=== PATIENT | female | born 1935 | race Caucasian/White ===

== ENCOUNTER 2024-04-16 05:59 | Inpatient (IN) | payer MEDICARE, BC ==
[~2024-04-16] VITALS: Ht 149.9 cm; Wt 58.1 kg
[2024-04-16] MEDS: IV NS 0.9% 500 ML BAG IV ONE (07:17)
[2024-04-16 07:32] LABS: BASOPHILS % (AUTO) 0.3 % (0.0-2.0); EOSINOPHILS % (AUTO) 0.2 % (0.0-6.0); HEMATOCRIT 40 % (33-45); HEMOGLOBIN 12.5 g/dL (11.5-14.8); LYMPHOCYTES # (AUTO) 0.2 K/uL (0.8-4.8); LYMPHOCYTES % (AUTO) 1.5 % (20.0-44.0); MEAN CORPUSCULAR HEMOGLOBIN 27 PG (26.0-33.0); MEAN CORPUSCULAR HGB CONC 32 g/dl (31.0-36.0); MEAN CORPUSCULAR VOLUME 84 fL (82-100); MONOCYTES # (AUTO) 0.5 K/uL (0.1-1.30); MONOCYTES % (AUTO) 3.6 % (2.0-12.0); NEUTROPHILS # (AUTO) 12.9 K/uL (1.8-8.9); NEUTROPHILS % (AUTO) 94.4 % (43.0-81.0); PLATELET COUNT (AUTO) 248 K/uL (150-450); RED CELL DISTRIBUTION WIDTH 14.7 % (11.5-15.0); WHITE BLOOD COUNT (AUTO) 13.7 K/uL (4.3-11.0)
[2024-04-16 07:48] LABS: ALANINE AMINOTRANSFERASE 22 U/L (12-78); ALBUMIN 3.5 g/dL (3.4-5.0); ALKALINE PHOSPHATASE 82 U/L (46-116); ASPARTATE AMINOTRANSFERASE 22 U/L (15-37); BILIRUBIN,DIRECT 0.1 mg/dL (0.0-0.2); BILIRUBIN,TOTAL 0.7 mg/dL (0.2-1.0); CALCIUM, SERUM 9.4 mg/dL (8.5-10.1); CARBON DIOXIDE 28 mmol/L (21-32); CHLORIDE 105 mmol/L (98-107); GLUCOSE 131 mg/dL (74-106); LIPASE 112 U/L (16-77); POTASSIUM 4.8 mmol/L (3.5-5.1); SODIUM SERUM 139 mmol/L (136-145); TOTAL PROTEIN, SERUM 7.1 g/dL (6.4-8.2); UREA NITROGEN, BLOOD 26 mg/dL (7-18)
[2024-04-16] MEDS ORDERED: LOVA40TA2 PO (10:17)
[2024-04-16] MEDS ORDERED: ATEN100T PO (10:17)
[2024-04-16] MEDS ORDERED: MAGN400T26 PO (10:17)
[2024-04-16] MEDS ORDERED: AMLO-212 PO (10:17)
[2024-04-16] MEDS: METRONIDAZOLE 500MG/ NS 100ML 500 MG in PREMIX 1 EA IV SCH ×3 (11:00→22:50)
[2024-04-16] MEDS ORDERED: hydrALAZINE HCL IV 20 MG VIAL IV PRN (11:00)
[2024-04-16] MEDS ORDERED: LEVOFLOXACIN 750 MG /D5W 150ML 750 MG in PREMIX 1 EA IV ONE (11:00)
[2024-04-16] MEDS ORDERED: MORPHINE SULFATE INJ 2 MG/ML DISP.SYRIN IV PRN (11:00)
[2024-04-16] MEDS ORDERED: ACETAMINOPHEN 325 MG TABLET PO PRN (11:00)
[2024-04-16] MEDS ORDERED: ONDANSETRON HCL/PF 4 MG/2 ML VIAL IVP PRN (11:00)
[2024-04-16 11:24] LABS: APPEARANCE,URINE TURBID (CLEAR); BILIRUBIN,URINE 1+ (NEGATIVE); BLOOD, URINE 2+ Ery/uL (NEGATIVE); COLOR,URINE YELLOW (YELLOW); KETONES,URINE 1+ mg/dL (NEGATIVE); LEUKOCYTE ESTERASE ,URINE 2+ (NEGATIVE); NITRITE, URINE POSITIVE (NEGATIVE); PROTEIN,URINE 2+ mg/dl (NEGATIVE); UGLUCOSE NEGATIVE (NEGATIVE)
[2024-04-16 11:27] LABS: BACTERIA,URINE Many /HPF (None Seen); SQUAMOUS EPITHELIAL CELL,UR None Seen /HPF (None Seen); URINE AMORPHOUS URATE Many /HPF (None Seen)
[2024-04-16 11:28] LABS: ADD URINE CULTURE YES
[2024-04-16] MEDS: LEVOFLOXACIN 750 MG /D5W 150ML 750 MG in PREMIX 1 EA IV ONE (12:00)
[2024-04-16] MEDS: IV NS 0.9% 1,000 ML IV SCH (13:03)
[2024-04-16 13:05] VITALS: BP_SYST 106; BP_SYST 123; BP_DIAS 50; BP_DIAS 57; TEMP 98.2; O2SAT 95
[2024-04-16] MEDS: ENOXAPARIN SODIUM 30 MG/0.3 ML DISP.SYRIN SQ SCH (13:20)
[2024-04-16] MEDS: MAGNESIUM OXIDE 400 MG TABLET PO SCH (17:42)
[2024-04-16] MEDS: AMLODIPINE BESYLATE 5 MG TABLET PO SCH (17:42)
[2024-04-16] MEDS: VANCOMYCIN HCL 125 MG/2.5 ML ORAL.SUSP PO SCH (17:43)
[2024-04-16] MEDS: FIDAXOMICIN 200 MG TABLET PO SCH (19:24)
[2024-04-16 20:00] VITALS: BP 122/58; TEMP 98.6; O2SAT 95
[2024-04-16] MEDS: CHOLESTYRAMINE/ASPARTAME 4 G/PKT PACKET PO SCH (21:58)
[2024-04-16] MEDS: ATORVASTATIN 10 MG TABLET PO SCH (21:58)
[2024-04-17] VITALS: BP 125/53; TEMP 98.2; O2SAT 95
[2024-04-17 04:00] VITALS: BP 118/62; TEMP 98.1; O2SAT 95
[2024-04-17] MEDS: LEVOFLOXACIN 750 MG /D5W 150ML 750 MG in PREMIX 1 EA IV SCH (05:17)
[2024-04-17 07:13] LABS: BASOPHILS % (AUTO) 0.2 % (0.0-2.0); EOSINOPHILS % (AUTO) 0.1 % (0.0-6.0); HEMATOCRIT 35 % (33-45); HEMOGLOBIN 11.4 g/dL (11.5-14.8); LYMPHOCYTES # (AUTO) 0.5 K/uL (0.8-4.8); LYMPHOCYTES % (AUTO) 5.6 % (20.0-44.0); MEAN CORPUSCULAR HEMOGLOBIN 28 PG (26.0-33.0); MEAN CORPUSCULAR HGB CONC 33 g/dl (31.0-36.0); MEAN CORPUSCULAR VOLUME 85 fL (82-100); MONOCYTES # (AUTO) 1.3 K/uL (0.1-1.30); MONOCYTES % (AUTO) 15.8 % (2.0-12.0); NEUTROPHILS # (AUTO) 6.6 K/uL (1.8-8.9); NEUTROPHILS % (AUTO) 78.3 % (43.0-81.0); PLATELET COUNT (AUTO) 201 K/uL (150-450); RED BLOOD CELL COUNT(AUTO) 4.08 MIL/uL (4.0-5.2); RED CELL DISTRIBUTION WIDTH 15.1 % (11.5-15.0); WHITE BLOOD COUNT (AUTO) 8.4 K/uL (4.3-11.0)
[2024-04-17 07:38] LABS: ALANINE AMINOTRANSFERASE 19 U/L (12-78); ALBUMIN 2.6 g/dL (3.4-5.0); ALKALINE PHOSPHATASE 62 U/L (46-116); ASPARTATE AMINOTRANSFERASE 24 U/L (15-37); BILIRUBIN,TOTAL 0.3 mg/dL (0.2-1.0); CALCIUM, SERUM 8.7 mg/dL (8.5-10.1); CARBON DIOXIDE 24 mmol/L (21-32); CHLORIDE 108 mmol/L (98-107); CREATININE 0.8 mg/dL (0.6-1.3); GLUCOSE 94 mg/dL (74-106); PHOSPHORUS 3.2 mg/dL (2.5-4.9); POTASSIUM 3.8 mmol/L (3.5-5.1); SODIUM SERUM 139 mmol/L (136-145); TOTAL PROTEIN, SERUM 5.7 g/dL (6.4-8.2); UREA NITROGEN, BLOOD 18 mg/dL (7-18)
[2024-04-17 08:00] VITALS: BP 115/51; TEMP 96.9; O2SAT 95
[2024-04-17] MEDS: ATENOLOL 50 MG TABLET PO SCH (09:18)
[2024-04-17 12:00] VITALS: BP 119/76; TEMP 98.4; O2SAT 95
[2024-04-17 16:00] VITALS: BP 122/57; TEMP 97.6; O2SAT 95
[2024-04-17 20:00] VITALS: BP 150/52; TEMP 98.2; O2SAT 98
[2024-04-18] VITALS (7 sets, daily range): BP systolic 117–162; BP diastolic 47–78; TEMP 97.5–99.1; O2SAT 93–96
[2024-04-18] MEDS: IV NS 0.9% 1,000 ML IV PRN (18:50)
[2024-04-19] VITALS: BP 142/70; TEMP 98.4; O2SAT 93
[2024-04-19 04:00] VITALS: BP 141/70; TEMP 98.2; O2SAT 93
[2024-04-19] MEDS: LEVOFLOXACIN 750 MG /D5W 150ML 750 MG in PREMIX 1 EA IV SCH (05:12)
[2024-04-19 08:00] VITALS: BP 142/54; TEMP 98.3; TEMP 98.9; O2SAT 96
[2024-04-19] MEDS ORDERED: VANC125C11 PO ×2 (11:45→15:05)
[2024-04-19 16:00] VITALS: BP 145/72; TEMP 98.6; O2SAT 98
[2024-04-19 20:00] VITALS: BP 122/73; TEMP 97.9; O2SAT 96
[2024-04-20 04:00] VITALS: BP 137/64; TEMP 97.8; O2SAT 95
[2024-04-20 08:00] VITALS: BP 129/61; TEMP 97.8; O2SAT 97
[2024-04-20 08:52] VITALS: BP 129/61
[2024-04-20 11:48] LABS: CALCIUM, SERUM 8.6 mg/dL (8.5-10.1); CARBON DIOXIDE 26 mmol/L (21-32); CHLORIDE 108 mmol/L (98-107); CREATININE 0.7 mg/dL (0.6-1.3); GLUCOSE 119 mg/dL (74-106); POTASSIUM 3.4 mmol/L (3.5-5.1); SODIUM SERUM 141 mmol/L (136-145); UREA NITROGEN, BLOOD 9 mg/dL (7-18)
== END 2024-04-20 14:54 | disposition home or self-care (01) | DRG 392 ==
LOC: ER 06:06 → MEDSG1 10:16 → TELE1 12:11 → MEDSG1 04-19 09:55
PROVIDERS: ADMIT Internal Medicine; ATTEND Nurse Practitioner Acute Care
DX: A08.4 Viral intestinal infection, unspecified (principal); N39.0 Urinary tract infection, site not specified; I10 Essential (primary) hypertension; E86.0 Dehydration; K86.9 Disease of pancreas, unspecified; B96.20 Unspecified Escherichia coli [E. coli] as the cause of diseases classified elsewhere; E78.5 Hyperlipidemia, unspecified; I25.10 Atherosclerotic heart disease of native coronary artery without angina pectoris; Z86.19 Personal history of other infectious and parasitic diseases; Z88.0 Allergy status to penicillin; Z90.49 Acquired absence of other specified parts of digestive tract; Z20.822 Contact with and (suspected) exposure to COVID-19; D72.829 Elevated white blood cell count, unspecified; K57.30 Diverticulosis of large intestine without perforation or abscess without bleeding
CPT/HCPCS: 36415; 71045-TC; 80048-TC; 80053-TC; 80076-TC; 81001; 83690-TC; 83735-TC; 84100-TC; 85025-TC; 87040-TC; 87086-TC; 89055; 97110-TC; 97116-TC; 97530-TC; A4216; G0378; J1650; J1956; J7030

== ENCOUNTER 2025-03-17 13:40 | Emergency (ER) | payer MEDICARE, BC ==
[~2025-03-17] VITALS: Ht 157.5 cm; Wt 55.3 kg
[~2025-03-17 13:40] MED LIST: AMLO-212 PO; ATEN100T PO; LOVA40TA2 PO; MAGN400T26 PO; VANC125C11 PO
[2025-03-17 14:42] LABS: PLATELET COUNT (AUTO) 231 K/uL (150-450); RED BLOOD CELL COUNT(AUTO) 4.66 MIL/uL (4.0-5.2); RED CELL DISTRIBUTION WIDTH 14.5 % (11.5-15.0); WHITE BLOOD COUNT (AUTO) 9.1 K/uL (4.3-11.0)
[2025-03-17 14:57] LABS: CALCIUM, SERUM 9.5 mg/dL (8.5-10.1); CREATININE 0.9 mg/dL (0.6-1.3); SODIUM SERUM 136 mmol/L (136-145); UREA NITROGEN, BLOOD 18 mg/dL (7-18)
[2025-03-17 15:01] LABS: ALCOHOL, BLOOD < 3 mg/dL (0-10)
[2025-03-17] MEDS: IV NS 0.9% 500 ML BAG IV ONE (15:30)
[2025-03-17] MEDS: MECLIZINE HCL 25 MG TABLET PO ONE (15:30)
[2025-03-17] MEDS ORDERED: MECL-182 PO (16:29)
[2025-03-17 17:01] VITALS: BP 144/91; TEMP 98.9; O2SAT 99
== END 2025-03-17 17:02 | disposition home or self-care (01) ==
LOC: ER 14:02 → UNDOADMIN 16:17 → MED 16:17 → ER 17:02
DX: R53.83 Other fatigue (principal); I10 Essential (primary) hypertension; Z98.890 Other specified postprocedural states
CPT/HCPCS: 99285; 93005; 71045; 70450; 85025; 80048; 85730; 36415; 84484 ×2; 80320; J7040; G0480; J8597